=== PATIENT | female | born 1975 | race Caucasian/White ===

== ENCOUNTER 2020-06-28 11:49 | Emergency (ER) | payer OTHER, SELFPAY ==
[2020-06-28 11:52] VITALS: BP 160/115; PULSE 85; PULSE 87; RESP 18; RESP 19; TEMP 36.6; O2SAT 98; O2SAT 99; BMI 42.9
--- NOTE | 2020-06-28 12:08 | EKG12_ITS ---
Test Reason : WEAKNESS Blood Pressure : / mmHG Vent. Rate : 079 BPM Atrial Rate : 079 BPM P-R Int : 138 ms QRS Dur : 082 ms QT Int : 392 ms P-R-T Axes : 022 -18 016 degrees QTc Int : 449 ms Normal sinus rhythm Voltage criteria for left ventricular hypertrophy Abnormal ECG Confirmed by RADHA COTTON, SHARON ([id number]), food expeditor MELIDA STEVE ([id number]) on 07/04/2020 7:58:13 AM Referred By: DEUCE Confirmed By:TOM GARCIA MD
--- NOTE | 2020-06-28 12:13 | NURSING ---
NO OLD EKGS
[2020-06-28 12:44] LABS: Absolute Lymphocyte Count 1.64 X10^3/uL (0.83-4.51); Absolute Neutrophil Count 5.2 X10^3/uL (2.0-7.7); Basophil# 0.03 X10^3/uL; Basophil% 0.4 % (0-1); Eosinophil# 0.09 X10^3/uL; Eosinophils% 1.2 % (0-5); Hematocrit 37.8 % (37-47); Hemoglobin 11.9 g/dL (12.0-15.0); Lymphocyte # 1.64 X10^3/ul (4.0); Lymphocyte % 21.3 % (19-41); Mean Corp Hgb Conc 31.5 g/dL (32-36); Mean Corpuscular Hgb 27.4 pg (27.0-32.0); Mean Corpuscular Volume 86.9 fL (81-99); Mean Platelet Vol. 9.8 fl (6.2-12.0); Monocyte# 0.65 X10^3/uL; Monocyte% 8.5 % (0-10); NRBC Flagged by Analyzer 0 % (0-5); Neutrophil # 5.24 X10^3/uL (2.7-7.7); Neutrophil % 68.1 % (47-70); Platelet Count 250 K/mm3 (150-450); RBC Distribution Width CV 13.2 % (11.6-14.6); RBC Distribution Width SD 42.2 fl (35.1-43.9); Red Blood Count 4.35 M/mm3 (4.2-5.4); White Blood Count 7.7 K/mm3 (4.4-11.0)
--- NOTE | 2020-06-28 13:04 | ED.DCSUM_ITS ---
- ER Visit Summary Date of Service: 06/28/20 Chief Complaint: Weakness and abdominal pain History of Present Illness: The patient is a [address] Wilda Purcell. 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 She has had gradually increasing weakness and abdominal pain over the past 5 weeks. She states this is similar to when she has had porphyria exacerbations in the past. She reports that she has diffuse bilateral leg pain for the past 5 weeks. Patient reports that she has been nauseated. She is not vomited. No diarrhea. She is had chills. She has a headache from being so tired. Physical Examination: Vitals: Stable. Afebrile. General: Well-nourished and well-developed. Head: Normocephalic atraumatic. Neck: Supple, no lymphadenopathy. No JVD. Nontender. Cardiovascular: Regular rate and rhythm. No murmurs. Respiratory: No respiratory distress. Clear to auscultation bilaterally. Abdominal: Soft, mild diffuse tenderness to palpation, nondistended, normal bowel sounds. No guarding, rebound, or peritoneal signs. Back: Nontender. Extremities: Nontender, no edema. Skin: Normal color, no rash. Neurologic: Alert and oriented ?3. Cranial nerves II through XII are intact. Normal strength and sensation. Psych: Normal affect. Test Results: EKG is sinus at 79 with LVH. Troponin is negative. UA shows leukocytes and 10-25 white blood cells. There is no bacteria. This was sent for culture. LFTs show an AST of 8. Chem-7 shows a chloride of 110 glucose 112. CBC shows a hemoglobin 11.9. CPK is 143. Emergency Department Course and Treatment: I discussed the patient with the pharmacy here. We do not have Hemin and cannot get it. This was also discussed with [facility]. They do not have this either. This was discussed with [facility] and they do have this medication. Treatment Plan: Patient was discussed with Dr. Martinez. She asked that I speak with hematology oncology here. She was discussed with Dr. Cohen who states that he is not taking care of a case of porphyria for 15 years and asked that she be transferred to tertiary care center. Disposition: Transferred in stable condition. Impression: 1. Porphyria exacerbation. This note was generated with Dragon dictation software. It may contain incorrect words, spelling, and punctuation that were not noted in review of the chart prior to signing ED Disposition - Plan for ED Patient: Referrals: Chasidy Almonte PA-C [Primary Care Provider] -
[2020-06-28 13:11] LABS: ALB/GLOB Ratio 0.9 RATIO (0.9-2.4); AST(SGOT) 8 U/L (15-37); Alanine Aminotransfer ALT/SGPT 24 U/L (13-56); Albumin, Serum 3.6 g/dL (3.2-5.0); Alkaline Phosphatase 79 U/L (45-117); Anion Gap 5 (5-15); BUN 12 mg/dL (7-18); BUN/Creat Ratio 14.3 RATIO (10-20); Calcium,Total 8.7 mg/dL (8.5-10.1); Chloride 110 mmol/L (98-107); Creatinine, Serum 0.84 mg/dL (0.55-1.02); EST Glomerular Filtration Rate 78 mL/min (>60); Est Glom Filt Rate - Afr Amer 94 mL/min (>60); Estimated Creatinine Clearance 79.17 ml/min; Glucose 112 mg/dL (74-106); Potassium 4.3 mmol/L (3.5-5.1); Protein, Total 7.6 g/dL (6.4-8.2); Sodium Level 140 mmol/L (136-145)
[2020-06-28 13:16] LABS: CPK Total, Creatine Kinase 143 U/L (26-192)
[2020-06-28 13:24] LABS: Bacteria 0 SEEN /hpf (None Seen); Mucous, Urine 0 SEEN /hpf (<or=2+); Red Blood Cells-Urine 0 SEEN /hpf (0-5); Squamous Epithelial Cells - UA 0 SEEN /hpf (5-10)
[2020-06-28 13:26] LABS: Color, Urine Yellow (Yellow); Glucose, Dipstick Normal (Normal); Ketone-Dipstick Negative (Negative); Leukocyte Esterase-Dipstick 500 /ul (Negative); Nitrite-Dipstick Negative (Negative); Occult Blood-Urine Negative /ul (Negative); Protein-Dipstick Negative (Negative); Urine Bilirubin Dipstick Negative (Negative); Urine Clarity Clear (Clear); Urine Urobilinogen Normal (Normal)
--- NOTE | 2020-06-28 13:30 | NURSING ---
CALLED [facility], TALKED TO MERLYN. FAXED FACESHEET
[2020-06-28 13:33] LABS: White Blood Cells 10-25 SEEN /hpf (0-5)
[2020-06-28 13:49] VITALS: BP 164/98; PULSE 83; RESP 18
--- NOTE | 2020-06-28 14:14 | NURSING ---
PATIENT ACCEPTED, BUT WAITING ON A BED AT F
[2020-06-28 14:57] VITALS: BP 154/106; PULSE 79; RESP 16; O2SAT 99
--- NOTE | 2020-06-28 14:57 | NURSING ---
[facility] MAIN G81 BED 31 NURSE TO NURSE [phone]
--- NOTE | 2020-06-28 15:10 | NURSING ---
[facility] ETA IS 90 MIN
[2020-06-28 15:22] VITALS: BP 170/103; PULSE 81; RESP 18
[2020-06-28 16:06] VITALS: BP 164/87; PULSE 88; RESP 18
[2020-06-28 17:37] VITALS: BP 139/88; PULSE 76; RESP 16; O2SAT 98
== END 2020-06-28 17:38 | disposition short-term general hospital (02) ==
LOC: ED 12:47
PROVIDERS: Emergency Provider Emergency Medicine; PCP Family Medicine
DX: E80.20 Unspecified porphyria (principal); I10 Essential (primary) hypertension
CPT/HCPCS: 80053; 81001; 82550; 84484; 85025; 87086; 87088; 93005; 96360; 99285; J7030